=== PATIENT | female | born 1960 | race Two or more races ===

== ENCOUNTER 2020-12-13 17:37 | Inpatient (IN) | payer BC, OTHER ==
[~2020-12-13] VITALS: Ht 170.2 cm; Wt 100.0 kg
[2020-12-13 19:35] LABS: Basophils # (auto) 0 10 ^3/uL (0-0.2); Eosinophils # (auto) 0 10 ^3/uL (0-0.8); Eosinophils % (auto) 0.1 % (0.0-7.0); Hemoglobin 17.5 g/dL (12.2-16.2); Mean Corpuscular Hemoglobin 34.7 pg (28.0-32.0); Monocytes # (auto) 0.2 10 ^3/uL (0-1.3); Neutrophils % (auto) 92.6 % (37.0-80.0)
[2020-12-13 19:37] LABS: Basophils % (auto) 0.3 % (0.0-2.0); Hematocrit 48.9 % (36.0-46.0); Lymphocytes # (auto) 0.9 10 ^3/uL (0.4-5.4); Lymphocytes % (auto) 5.7 % (10.0-50.0); Mean Corpuscular Hgb Conc. 35.8 g/dL (32.0-36.0); Mean Corpuscular Volume 96.7 fL (80.0-100.0); Monocytes % (auto) 1.3 % (0.0-12.0); Neutrophils # (auto) 14.1 10 ^3/uL (1.6-8.6); Nucleated Red Blood Cells % 0.2 %; Red Blood Cells 5.06 10^6/uL (4.0-5.20); Red Cell Distribution Width 13.5 % (11.8-14.3); White Blood Cell 15.2 10^3/uL (4.4-10.8)
[2020-12-13] MEDS ORDERED: PIPERACILLIN-TAZOB 3.375GM 100 ML IV ONE (20:30)
[2020-12-13] MEDS ORDERED: VANCOMYCIN 1GM/250ML 250 ML IV ONE (20:30)
[2020-12-13] MEDS ORDERED: SODIUM CHLORIDE 0.9% 500 ML IV ONE ×2 (20:30→21:45)
[2020-12-13 20:34] LABS: Alkaline Phosphatase 191 U/L (45-117); Anion Gap 16 (5-15); Blood Urea Nitrogen 10 mg/dL (7-18); Carbon Dioxide 22 mmol/L (21-32); Chloride 69 mmol/L (98-107); GFR African American 162 mL/min; GFR Non-African American 134 mL/min; Glucose 106 mg/dL (74-106); Potassium 4.3 mmol/L (3.5-5.1)
[2020-12-13 20:35] LABS: Alanine Aminotransferase 70 U/L (13-56); Albumin 2.3 g/dL (3.4-5.0); Aspartate Aminotransferase 74 U/L (15-37); Bilirubin, Total 1.4 mg/dL (0.2-1.0); Calcium 8.3 mg/dL (8.5-10.1); Magnesium 1.8 mg/dL (1.6-2.6)
[2020-12-13 20:51] LABS: INR 1.37 (0.9-1.15); Partial Thromboplastin Time 31.2 sec (23.0-31.2)
[2020-12-13 21:02] LABS: Sodium 107 mmol/L (136-145)
[2020-12-13] MEDS ORDERED: SODIUM CHL 3% 500 ML IV ONE (21:30)
[2020-12-13 21:33] LABS: Urine Bacteria FEW /hpf (None Seen); Urine Blood Negative /uL (Negative); Urine Specific Gravity 1.017 (1.001-1.035); Urine WBC 10 /hpf (0 - 5)
[2020-12-13 21:42] LABS: Amphetamine Screen, Urine NEGATIVE (NEGATIVE); Barbiturate Scree,Urine NEGATIVE (NEGATIVE); Benzodiazephine Screen, Urine NEGATIVE (NEGATIVE); Cannabinoid Screen, Urine POSITIVE (NEGATIVE); Cocaine Screen, Urine NEGATIVE (NEGATIVE); Opiate Scree,Urine NEGATIVE (NEGATIVE); Phencyclidine Screen, Urine NEGATIVE (NEGATIVE)
[2020-12-13] MEDS ORDERED: SODIUM CHLORIDE 0.9% 1,000 ML IV ONE (21:45)
[2020-12-13] MEDS ORDERED: IOHEXOL 350 MG/ML 100ML IJ ONE (21:56)
[2020-12-14] MEDS ORDERED: SODIUM CHL 3% 500 ML IV ONE ×2 (01:00→13:00)
[2020-12-14] MEDS ORDERED: NITROGLYCERIN 0.4 MG SL TAB SL PRN (01:00)
[2020-12-14] MEDS ORDERED: MORPHINE SULFATE INJECTION 2 MG/ML SYRG IV PRN (01:00)
[2020-12-14] MEDS ORDERED: ONDANSETRON HCL 4 MG/2 ML VIAL IV PRN (01:00)
[2020-12-14] MEDS ORDERED: ACETAMINOPHEN 325 MG TAB PO PRN (01:00)
[2020-12-14 01:37] LABS: Calcium 7.9 mg/dL (8.5-10.1); Potassium 4.2 mmol/L (3.5-5.1)
[2020-12-14 01:43] LABS: BUN/Creatinine Ratio 19.5
[2020-12-14 04:26] LABS: Magnesium 1.7 mg/dL (1.6-2.6)
[2020-12-14 04:39] LABS: CRP High Sensitivity 16.6 mg/dL (< 0.3)
[2020-12-14] MEDS: ENOXAPARIN SOD 40 MG/0.4 ML SYRINGE SC SCH ×2 (09:32→21:32)
[2020-12-14] MEDS: DOXYCYCLINE 100MG/250ML 250 ML IV SCH ×2 (09:32→21:32)
[2020-12-14] MEDS: ASCORBIC ACID 1,000 MG TAB PO SCH (09:32)
[2020-12-14] MEDS: CHOLECALCIFEROL (VITD3) 2,000 UNIT CAP/TAB PO SCH (09:32)
[2020-12-14] MEDS: ZINC SULFATE 220mg CAP or TAB PO SCH (09:32)
[2020-12-14] MEDS ORDERED: DexAMETHasone SOD PHOS 10MG/1ML VIAL INJ IV SCH (10:00)
[2020-12-14] MEDS: FAMOTIDINE 20 MG TAB PO SCH ×2 (10:10→21:32)
[2020-12-14] MEDS ORDERED: ALUM & MAG HYDROX-SIMETH LIQ(MAALOX) 30 ML PO PRN (13:00)
[2020-12-14] MEDS ORDERED: LIDOCAINE VISCOUS 2% 15ML UD MT ONE (13:15)
[2020-12-14] MEDS ORDERED: DONNATAL 5ml ORAL Elix (BELLADONNA ALK-PHENOBARB) PO PRN (13:15)
[2020-12-14] MEDS ORDERED: DONNATAL 5ml ORAL Elix (BELLADONNA ALK-PHENOBARB) PO ONE (13:45)
[2020-12-14] MEDS ORDERED: ALUM & MAG HYDROX-SIMETH LIQ(MAALOX) 30 ML PO ONE (13:45)
[2020-12-15 08:33] LABS: Basophils # (auto) 0 10 ^3/uL (0-0.2); Basophils % (auto) 0.2 % (0.0-2.0); Eosinophils # (auto) 0 10 ^3/uL (0-0.8); Eosinophils % (auto) 0.1 % (0.0-7.0); Hemoglobin 14.8 g/dL (12.2-16.2); Mean Corpuscular Hgb Conc. 35.3 g/dL (32.0-36.0); Neutrophils # (auto) 9.4 10 ^3/uL (1.6-8.6)
[2020-12-15 08:35] LABS: Hematocrit 41.9 % (36.0-46.0); Lymphocytes % (auto) 8.9 % (10.0-50.0); Mean Corpuscular Hemoglobin 34.8 pg (28.0-32.0); Mean Corpuscular Volume 98.4 fL (80.0-100.0); Monocytes # (auto) 0.3 10 ^3/uL (0-1.3); Monocytes % (auto) 2.6 % (0.0-12.0); Neutrophils % (auto) 88.2 % (37.0-80.0); Red Blood Cells 4.26 10^6/uL (4.0-5.20); Red Cell Distribution Width 13.6 % (11.8-14.3); White Blood Cell 10.7 10^3/uL (4.4-10.8)
[2020-12-15 08:53] LABS: Albumin 1.9 g/dL (3.4-5.0); Calcium 7.9 mg/dL (8.5-10.1); Potassium 3.5 mmol/L (3.5-5.1)
[2020-12-15] MEDS: ZINC SULFATE 220mg CAP or TAB PO SCH (08:55)
[2020-12-15] MEDS: ASCORBIC ACID 1,000 MG TAB PO SCH (08:55)
[2020-12-15] MEDS: CHOLECALCIFEROL (VITD3) 2,000 UNIT CAP/TAB PO SCH (08:55)
[2020-12-15] MEDS: DOXYCYCLINE 100MG/250ML 250 ML IV SCH ×2 (08:55→21:28)
[2020-12-15] MEDS: FAMOTIDINE 20 MG TAB PO SCH ×2 (08:55→21:28)
[2020-12-15] MEDS: ENOXAPARIN SOD 40 MG/0.4 ML SYRINGE SC SCH ×2 (08:56→21:28)
[2020-12-15 08:57] LABS: BUN/Creatinine Ratio 24.3; Bilirubin, Total 0.8 mg/dL (0.2-1.0); Total Protein 5.7 g/dL (6.4-8.2)
[2020-12-15] MEDS ORDERED: REMDESIVIR PER PHARMACY 0 ML IV SCH (12:45)
[2020-12-15] MEDS ORDERED: REMDESIVIR 200 MG in NS 210ml LOADING DOSE ADULT IV ONE (15:00)
[2020-12-15] MEDS ORDERED: DexAMETHasone SOD PHOS 10MG/1ML VIAL INJ IV ONE (15:30)
[2020-12-16 06:02] LABS: Basophils # (auto) 0 10 ^3/uL (0-0.2); Eosinophils # (auto) 0 10 ^3/uL (0-0.8); Hemoglobin 13.7 g/dL (12.2-16.2); Lymphocytes # (auto) 0.8 10 ^3/uL (0.4-5.4); Mean Corpuscular Hemoglobin 35.3 pg (28.0-32.0); Monocytes # (auto) 0.3 10 ^3/uL (0-1.3); Neutrophils # (auto) 7.3 10 ^3/uL (1.6-8.6); White Blood Cell 8.4 10^3/uL (4.4-10.8)
[2020-12-16 06:06] LABS: Basophils % (auto) 0.2 % (0.0-2.0); Hematocrit 37.7 % (36.0-46.0); Lymphocytes % (auto) 9.5 % (10.0-50.0); Mean Corpuscular Hgb Conc. 36.3 g/dL (32.0-36.0); Mean Corpuscular Volume 97.3 fL (80.0-100.0); Monocytes % (auto) 3.3 % (0.0-12.0); Red Blood Cells 3.87 10^6/uL (4.0-5.20); Red Cell Distribution Width 13.5 % (11.8-14.3)
[2020-12-16 06:26] LABS: Potassium 3.9 mmol/L (3.5-5.1)
[2020-12-16 06:34] LABS: Albumin 1.8 g/dL (3.4-5.0); BUN/Creatinine Ratio 28.1; Bilirubin, Total 0.8 mg/dL (0.2-1.0); Calcium 7.7 mg/dL (8.5-10.1); Total Protein 5.4 g/dL (6.4-8.2)
[2020-12-16] MEDS: FAMOTIDINE 20 MG TAB PO SCH ×2 (09:20→21:41)
[2020-12-16] MEDS: ENOXAPARIN SOD 40 MG/0.4 ML SYRINGE SC SCH ×2 (09:20→21:41)
[2020-12-16] MEDS: ZINC SULFATE 220mg CAP or TAB PO SCH (09:20)
[2020-12-16] MEDS: ASCORBIC ACID 1,000 MG TAB PO SCH (09:20)
[2020-12-16] MEDS: DexAMETHasone SOD PHOS 10MG/1ML VIAL INJ IV SCH (09:20)
[2020-12-16] MEDS: DOXYCYCLINE 100MG/250ML 250 ML IV SCH ×2 (09:20→21:41)
[2020-12-16] MEDS: CHOLECALCIFEROL (VITD3) 2,000 UNIT CAP/TAB PO SCH (09:20)
[2020-12-16] MEDS: REMDESIVIR 100mg 100 MG in SODIUM CHL 0.9% 230 ML IV SCH (15:21)
[2020-12-16] MEDS ORDERED: cefTRIAXone 1GM/50ML D5W 50 ML IV ONE (16:30)
[2020-12-16 19:14] VITALS: BP 108/70
[2020-12-16] MEDS: TEMAZEPAM 15 MG CAP PO PRN (21:17)
[2020-12-17] MEDS: ALBUTEROL SULF HFA 90MCG INH 200DOSE IN PRN (08:06)
[2020-12-17 08:18] LABS: Basophils # (auto) 0 10 ^3/uL (0-0.2); Eosinophils # (auto) 0 10 ^3/uL (0-0.8); Eosinophils % (auto) 0.3 % (0.0-7.0); Hemoglobin 13.8 g/dL (12.2-16.2); Lymphocytes # (auto) 1.4 10 ^3/uL (0.4-5.4); Neutrophils # (auto) 8.3 10 ^3/uL (1.6-8.6); Red Cell Distribution Width 13.9 % (11.8-14.3)
[2020-12-17] MEDS: cefTRIAXone 1GM/50ML D5W 50 ML IV SCH (08:18)
[2020-12-17 08:20] LABS: Basophils % (auto) 0.4 % (0.0-2.0); Hematocrit 38.8 % (36.0-46.0); Lymphocytes % (auto) 13.5 % (10.0-50.0); Mean Corpuscular Hemoglobin 34.8 pg (28.0-32.0); Mean Corpuscular Hgb Conc. 35.6 g/dL (32.0-36.0); Mean Corpuscular Volume 97.7 fL (80.0-100.0); Monocytes # (auto) 0.5 10 ^3/uL (0-1.3); Monocytes % (auto) 5.2 % (0.0-12.0); Neutrophils % (auto) 80.6 % (37.0-80.0); Nucleated Red Blood Cells % 0.1 %; Red Blood Cells 3.97 10^6/uL (4.0-5.20); White Blood Cell 10.3 10^3/uL (4.4-10.8)
[2020-12-17 08:32] LABS: Calcium 7.5 mg/dL (8.5-10.1); Potassium 3.6 mmol/L (3.5-5.1)
[2020-12-17 08:36] LABS: BUN/Creatinine Ratio 29.4; Bilirubin, Total 0.7 mg/dL (0.2-1.0); Total Protein 5.7 g/dL (6.4-8.2)
[2020-12-17] MEDS: ENOXAPARIN SOD 40 MG/0.4 ML SYRINGE SC SCH ×2 (10:12→22:32)
[2020-12-17] MEDS: ZINC SULFATE 220mg CAP or TAB PO SCH (10:12)
[2020-12-17] MEDS: FAMOTIDINE 20 MG TAB PO SCH ×2 (10:12→22:32)
[2020-12-17] MEDS: DOXYCYCLINE 100MG/250ML 250 ML IV SCH ×2 (10:12→22:31)
[2020-12-17] MEDS: ASCORBIC ACID 1,000 MG TAB PO SCH (10:12)
[2020-12-17] MEDS: CHOLECALCIFEROL (VITD3) 2,000 UNIT CAP/TAB PO SCH (10:12)
[2020-12-17] MEDS: DexAMETHasone SOD PHOS 10MG/1ML VIAL INJ IV SCH (10:12)
[2020-12-17 14:51] VITALS: BP 107/76
[2020-12-17] MEDS ORDERED: IBUP200C3 PO (15:09)
[2020-12-17 15:56] VITALS: BP 117/75
[2020-12-17] MEDS: REMDESIVIR 100mg 100 MG in SODIUM CHL 0.9% 230 ML IV SCH (18:47)
[2020-12-17] MEDS: TEMAZEPAM 15 MG CAP PO PRN (22:33)
[2020-12-18] VITALS: BP 93/59
[2020-12-18 05:41] LABS: Red Cell Distribution Width 13.9 % (11.8-14.3)
[2020-12-18 05:42] LABS: Hematocrit 36.7 % (36.0-46.0); Hemoglobin 13.2 g/dL (12.2-16.2); Mean Corpuscular Hemoglobin 34.8 pg (28.0-32.0); Mean Corpuscular Hgb Conc. 35.8 g/dL (32.0-36.0); Mean Corpuscular Volume 97.1 fL (80.0-100.0); Red Blood Cells 3.79 10^6/uL (4.0-5.20); White Blood Cell 9.1 10^3/uL (4.4-10.8)
[2020-12-18 06:06] LABS: Potassium 3.4 mmol/L (3.5-5.1)
[2020-12-18 06:10] LABS: Band Neutrophils % (manual) 0; Basophils % (manual) 0 (0.0-2.0); Blast Cells 0; Eosinophils % (manual) 0 (0-7); Metamyelocytes % 0; Myelocytes % 0; Promyelocytes % 0; Reactive Lymphocytes 0
[2020-12-18 06:21] LABS: Albumin 1.9 g/dL (3.4-5.0); BUN/Creatinine Ratio 36.4; Bilirubin, Total 0.7 mg/dL (0.2-1.0); CRP High Sensitivity 2.07 mg/dL (< 0.3); Calcium 6.6 mg/dL (8.5-10.1); Total Protein 5.4 g/dL (6.4-8.2)
[2020-12-18] MEDS: ALBUTEROL SULF HFA 90MCG INH 200DOSE IN PRN ×2 (07:20→19:03)
[2020-12-18 08:00] VITALS: BP 98/67
[2020-12-18 08:32] LABS: Lymphocytes % (manual) 14 (10.0-50.0); Monocytes % (manual) 18 (0-12)
[2020-12-18] MEDS: FAMOTIDINE 20 MG TAB PO SCH ×2 (09:52→21:19)
[2020-12-18] MEDS: ASCORBIC ACID 1,000 MG TAB PO SCH (09:52)
[2020-12-18] MEDS: CHOLECALCIFEROL (VITD3) 2,000 UNIT CAP/TAB PO SCH (09:52)
[2020-12-18] MEDS: ENOXAPARIN SOD 40 MG/0.4 ML SYRINGE SC SCH ×2 (09:52→21:18)
[2020-12-18] MEDS: DexAMETHasone SOD PHOS 10MG/1ML VIAL INJ IV SCH (09:52)
[2020-12-18] MEDS: cefTRIAXone 1GM/50ML D5W 50 ML IV SCH (09:52)
[2020-12-18] MEDS: ZINC SULFATE 220mg CAP or TAB PO SCH (09:52)
[2020-12-18] MEDS: DOXYCYCLINE 100MG/250ML 250 ML IV SCH ×2 (10:30→21:18)
[2020-12-18] MEDS: REMDESIVIR 100mg 100 MG in SODIUM CHL 0.9% 230 ML IV SCH (15:49)
[2020-12-18 16:00] VITALS: BP 98/67
[2020-12-18] MEDS ORDERED: POTASSIUM CHL 20 Meq TABLET PO ONE (19:15)
[2020-12-18] MEDS: TEMAZEPAM 15 MG CAP PO PRN (21:18)
[2020-12-19] VITALS: BP 114/77
[2020-12-19 06:12] LABS: Hematocrit 39.7 % (36.0-46.0); Hemoglobin 14.2 g/dL (12.2-16.2)
[2020-12-19 06:14] LABS: Mean Corpuscular Hemoglobin 34.9 pg (28.0-32.0); Mean Corpuscular Hgb Conc. 35.8 g/dL (32.0-36.0); Mean Corpuscular Volume 97.4 fL (80.0-100.0); Red Blood Cells 4.08 10^6/uL (4.0-5.20); Red Cell Distribution Width 13.8 % (11.8-14.3)
[2020-12-19 06:24] LABS: Calcium 6.8 mg/dL (8.5-10.1); Potassium 3.7 mmol/L (3.5-5.1)
[2020-12-19 06:25] LABS: Basophils % (manual) 0 (0.0-2.0); Blast Cells 0; Promyelocytes % 0; Reactive Lymphocytes 0
[2020-12-19 06:30] LABS: Albumin 2.2 g/dL (3.4-5.0); BUN/Creatinine Ratio 27.3; Bilirubin, Total 0.7 mg/dL (0.2-1.0); Total Protein 5.8 g/dL (6.4-8.2)
[2020-12-19 08:00] VITALS: BP 93/51
[2020-12-19] MEDS: cefTRIAXone 1GM/50ML D5W 50 ML IV SCH (09:39)
[2020-12-19] MEDS: ZINC SULFATE 220mg CAP or TAB PO SCH (09:39)
[2020-12-19] MEDS: DexAMETHasone SOD PHOS 10MG/1ML VIAL INJ IV SCH (09:39)
[2020-12-19] MEDS: ASCORBIC ACID 1,000 MG TAB PO SCH (09:40)
[2020-12-19] MEDS: FAMOTIDINE 20 MG TAB PO SCH ×2 (09:40→21:02)
[2020-12-19] MEDS: CHOLECALCIFEROL (VITD3) 2,000 UNIT CAP/TAB PO SCH (09:40)
[2020-12-19] MEDS: ENOXAPARIN SOD 40 MG/0.4 ML SYRINGE SC SCH ×2 (09:40→21:02)
[2020-12-19 11:35] LABS: Band Neutrophils % (manual) 15; Eosinophils % (manual) 1 (0-7); Lymphocytes % (manual) 17 (10.0-50.0); Metamyelocytes % 2; Monocytes % (manual) 9 (0-12); Myelocytes % 2
[2020-12-19 16:00] VITALS: BP 112/83
[2020-12-19] MEDS: REMDESIVIR 100mg 100 MG in SODIUM CHL 0.9% 230 ML IV SCH (16:06)
[2020-12-19] MEDS: ALBUTEROL SULF HFA 90MCG INH 200DOSE IN PRN (19:49)
[2020-12-19] MEDS: TEMAZEPAM 15 MG CAP PO PRN (21:03)
[2020-12-20 00:23] VITALS: BP 91/62
[2020-12-20 06:06] LABS: Hemoglobin 13.1 g/dL (12.2-16.2); Mean Corpuscular Volume 97.3 fL (80.0-100.0)
[2020-12-20 06:10] LABS: Hematocrit 36.7 % (36.0-46.0); Mean Corpuscular Hemoglobin 34.7 pg (28.0-32.0); Mean Corpuscular Hgb Conc. 35.7 g/dL (32.0-36.0); Red Blood Cells 3.77 10^6/uL (4.0-5.20); Red Cell Distribution Width 13.6 % (11.8-14.3); White Blood Cell 9.3 10^3/uL (4.4-10.8)
[2020-12-20 06:21] LABS: Calcium 7.1 mg/dL (8.5-10.1); Potassium 3.6 mmol/L (3.5-5.1)
[2020-12-20 06:49] LABS: Band Neutrophils % (manual) 0; Basophils % (manual) 0 (0.0-2.0); Blast Cells 0; Eosinophils % (manual) 0 (0-7); Metamyelocytes % 0; Myelocytes % 0; Promyelocytes % 0; Reactive Lymphocytes 0
[2020-12-20 08:00] VITALS: BP 118/74
[2020-12-20] MEDS: cefTRIAXone 1GM/50ML D5W 50 ML IV SCH (08:31)
[2020-12-20] MEDS: DexAMETHasone SOD PHOS 10MG/1ML VIAL INJ IV SCH (09:08)
[2020-12-20] MEDS: ZINC SULFATE 220mg CAP or TAB PO SCH (09:08)
[2020-12-20] MEDS: CHOLECALCIFEROL (VITD3) 2,000 UNIT CAP/TAB PO SCH (09:09)
[2020-12-20] MEDS: ENOXAPARIN SOD 40 MG/0.4 ML SYRINGE SC SCH ×2 (09:09→22:09)
[2020-12-20] MEDS: ASCORBIC ACID 1,000 MG TAB PO SCH (09:09)
[2020-12-20] MEDS: ALBUTEROL SULF HFA 90MCG INH 200DOSE IN PRN (09:11)
[2020-12-20 09:32] LABS: Lymphocytes % (manual) 20 (10.0-50.0); Monocytes % (manual) 5 (0-12)
[2020-12-20] MEDS: FAMOTIDINE 20 MG TAB PO SCH ×2 (10:19→22:09)
[2020-12-20 16:00] VITALS: BP 116/74
[2020-12-20] MEDS: TEMAZEPAM 15 MG CAP PO PRN (22:09)
[2020-12-21] VITALS: BP 109/76
[2020-12-21 05:27] LABS: Hematocrit 37.1 % (36.0-46.0); Hemoglobin 13.3 g/dL (12.2-16.2); Mean Corpuscular Hemoglobin 35.1 pg (28.0-32.0); Mean Corpuscular Hgb Conc. 35.8 g/dL (32.0-36.0); Red Blood Cells 3.79 10^6/uL (4.0-5.20); Red Cell Distribution Width 13.7 % (11.8-14.3); White Blood Cell 7.4 10^3/uL (4.4-10.8)
[2020-12-21 05:54] LABS: Calcium 7.5 mg/dL (8.5-10.1); Potassium 3.3 mmol/L (3.5-5.1)
[2020-12-21 05:55] LABS: BUN/Creatinine Ratio 32.1
[2020-12-21] MEDS: ALBUTEROL SULF HFA 90MCG INH 200DOSE IN PRN (06:20)
[2020-12-21 06:32] LABS: Basophils % (manual) 0 (0.0-2.0); Blast Cells 0; Eosinophils % (manual) 0 (0-7); Myelocytes % 0; Promyelocytes % 0; Reactive Lymphocytes 0
[2020-12-21 08:00] VITALS: BP 127/77
[2020-12-21 08:24] LABS: Band Neutrophils % (manual) 2; Lymphocytes % (manual) 24 (10.0-50.0); Metamyelocytes % 1; Monocytes % (manual) 9 (0-12)
[2020-12-21] MEDS: cefTRIAXone 1GM/50ML D5W 50 ML IV SCH (10:24)
[2020-12-21] MEDS: ENOXAPARIN SOD 40 MG/0.4 ML SYRINGE SC SCH (10:24)
[2020-12-21] MEDS: DexAMETHasone SOD PHOS 10MG/1ML VIAL INJ IV SCH (10:25)
[2020-12-21] MEDS: CHOLECALCIFEROL (VITD3) 2,000 UNIT CAP/TAB PO SCH (10:26)
[2020-12-21] MEDS: ASCORBIC ACID 1,000 MG TAB PO SCH (10:26)
[2020-12-21] MEDS: FAMOTIDINE 20 MG TAB PO SCH (10:26)
[2020-12-21] MEDS: ZINC SULFATE 220mg CAP or TAB PO SCH (10:26)
[2020-12-21] MEDS ORDERED: ASCO10003 PO (11:17)
[2020-12-21] MEDS ORDERED: CHOL1CAP47 PO (11:17)
[2020-12-21] MEDS ORDERED: ALBUAER3 IN (11:17)
[2020-12-21 14:23] VITALS: BP 127/77
[2020-12-21 15:43] VITALS: BP 119/66
== END 2020-12-21 17:00 | disposition home or self-care (01) | DRG 871 ==
LOC: EDBD 17:37 → ER 17:37 → TELE 17:38 → TELE-EAST 12-17 14:05
PROVIDERS: ADMIT Nurse Practitioner; ATTEND Internal Medicine Pulmonary Disease
PROC: XW033E5 Introduction of Remdesivir Anti-infective into Peripheral Vein, Percutaneous Approach, New Technology Group 5 (ICD-10-PCS; 2020-12-15)
PROC: XW13325 Transfusion of Convalescent Plasma (Nonautologous) into Peripheral Vein, Percutaneous Approach, New Technology Group 5 (ICD-10-PCS; principal; 2020-12-16)
PROC: 05HC33Z Insertion of Infusion Device into Left Basilic Vein, Percutaneous Approach (ICD-10-PCS; 2020-12-16)
PROC: B54NZZA Ultrasonography of Left Upper Extremity Veins, Guidance (ICD-10-PCS; 2020-12-16)
DX: A41.89 Other specified sepsis (principal); U07.1 COVID-19; J12.82 Pneumonia due to coronavirus disease 2019; J96.01 Acute respiratory failure with hypoxia; L03.314 Cellulitis of groin; E87.1 Hypo-osmolality and hyponatremia; E44.0 Moderate protein-calorie malnutrition; B35.6 Tinea cruris; F17.210 Nicotine dependence, cigarettes, uncomplicated; E87.6 Hypokalemia; Z68.33 Body mass index [BMI] 33.0-33.9, adult; R22.42 Localized swelling, mass and lump, left lower limb
CPT/HCPCS: 36415; 71045; 71260; 73700; 74177; 76705; 80048; 80053; 80307; 80320; 81001; 82533; 82728; 83605; 83615; 83735; 83880; 83930; 83935; 84295; 84300; 84443; 84484; 85007; 85025; 85027; 85379; 85610; 85730; 86141; 86850; 86900; 86901; 87040; 87086; 87088; 87186; 87426; 93005; 94640; 96365; 96366; 96368; 99291; G0378; J0696; J1100; J2543; J3490

== ENCOUNTER → 2021-02-05 | Outpatient (CLI) | payer OTHER ==
[~2021-02-05] MED LIST: ALBUAER3 IN; ASCO10003 PO; CHOL1CAP47 PO; IBUP200C3 PO
[2021-02-05 11:35] LABS: Urine Bacteria FEW /hpf (None Seen); Urine Blood Negative /uL (Negative); Urine Specific Gravity 1.008 (1.001-1.035); Urine WBC 2 /hpf (0 - 5)
== END | disposition home or self-care (01) ==
LOC: LAB 10:52
PROVIDERS: ATTEND Student in an Organized Health Care Education/Training Program
DX: I10 Essential (primary) hypertension (principal); R73.9 Hyperglycemia, unspecified
CPT/HCPCS: 81001

== ENCOUNTER → 2021-02-11 | Outpatient (CLI) | payer OTHER | END | disposition home or self-care (01) | LOC: XYW 09:46 | PROVIDERS: ATTEND Internal Medicine | DX: Z01.810 Encounter for preprocedural cardiovascular examination (principal); I51.7 Cardiomegaly | CPT/HCPCS: 93306 ==

== ENCOUNTER → 2021-02-12 | Outpatient (CLI) | payer OTHER ==
[~2021-02-12] VITALS: Ht 165.1 cm; Wt 94.8 kg
[~2021-02-12] MED LIST changes: +ADENOSINE 80 MG in GIVE UN-DILUTED 0 ML IV ONE
== END | disposition home or self-care (01) ==
LOC: XY 07:28
PROVIDERS: ATTEND Internal Medicine
DX: Z01.810 Encounter for preprocedural cardiovascular examination (principal)
CPT/HCPCS: 78452; 93017; A9500; J0153

== ENCOUNTER → 2021-06-04 | Outpatient (CLI) | payer OTHER ==
[~2021-06-04] MED LIST changes: -ADENOSINE 80 MG in GIVE UN-DILUTED 0 ML IV ONE
== END | disposition home or self-care (01) ==
LOC: LAB 12:48
PROVIDERS: ATTEND Student in an Organized Health Care Education/Training Program
DX: E03.9 Hypothyroidism, unspecified (principal)
CPT/HCPCS: 36415; 84439; 84443

== ENCOUNTER 2021-11-12 12:00 | Inpatient (IN) | payer OTHER ==
[~2021-11-12] VITALS: Ht 165.1 cm; Wt 82.0 kg
[2021-11-12] MEDS ORDERED: SODIUM CHLORIDE 0.9% 1,000 ML IV ONE ×2 (12:45)
[2021-11-12] MEDS ORDERED: CLINDAMYCIN 600MG IV 50 ML IV ONE (12:45)
[2021-11-12] MEDS ORDERED: cefTRIAXone 1GM/50ML D5W 50 ML IV ONE (12:45)
[2021-11-12 19:23] LABS: Basophils # (auto) 0 10 ^3/uL (0-0.2); Basophils % (auto) 0.1 % (0.0-2.0); Eosinophils # (auto) 0 10 ^3/uL (0-0.8); Hemoglobin 14.5 g/dL (12.2-16.2); Lymphocytes # (auto) 1.9 10 ^3/uL (0.4-5.4); Lymphocytes % (auto) 6.5 % (10.0-50.0); Mean Corpuscular Hemoglobin 31.4 pg (28.0-32.0); Mean Corpuscular Hgb Conc. 32.9 g/dL (32.0-36.0); Mean Corpuscular Volume 95.4 fL (80.0-100.0); Monocytes # (auto) 0.8 10 ^3/uL (0-1.3); Monocytes % (auto) 2.6 % (0.0-12.0); Neutrophils % (auto) 90.8 % (37.0-80.0); Red Blood Cells 4.61 10^6/uL (4.0-5.20); Red Cell Distribution Width 15.3 % (11.8-14.3); White Blood Cell 28.7 10^3/uL (4.4-10.8)
[2021-11-12 19:37] LABS: INR 1.16 (0.9-1.15); Partial Thromboplastin Time 28.7 sec (23.6-33.0)
[2021-11-12 19:39] LABS: Albumin 2.1 g/dL (3.4-5.0); Calcium 8.9 mg/dL (8.5-10.1); Potassium 4.6 mmol/L (3.5-5.1)
[2021-11-12 19:46] LABS: BUN/Creatinine Ratio 23.7; Bilirubin, Total 0.8 mg/dL (0.2-1.0); Total Protein 7.2 g/dL (6.4-8.2)
[2021-11-12] MEDS ORDERED: SODIUM CHL 3% 500 ML IV ONE (20:15)
[2021-11-12] MEDS ORDERED: ONDANSETRON HCL 4 MG/2 ML VIAL IV PRN (21:00)
[2021-11-12] MEDS ORDERED: SODIUM CHLORIDE 0.9% 1,000 ML IV SCH (21:00)
[2021-11-12] MEDS ORDERED: MORPHINE SULFATE INJECTION 2 MG/ML SYRG IV PRN ×2 (21:00→21:45)
[2021-11-12] MEDS ORDERED: DOCUSATE SOD 100 MG CAP PO PRN (21:00)
[2021-11-12] MEDS ORDERED: ALBUMIN 25% 100 ML IV ONE (21:00)
[2021-11-12] MEDS ORDERED: ACETAMINOPHEN 325 MG TAB PO PRN (21:00)
[2021-11-12] MEDS ORDERED: dilTIAZem 125mg/125ml BAG KIT 125 ML IV ONE (21:45)
[2021-11-12] MEDS ORDERED: NITROGLYCERIN 0.4 MG SL TAB SL PRN (21:45)
[2021-11-12] MEDS: ASCORBIC ACID 500 MG TAB PO SCH (22:55)
[2021-11-12] MEDS: CLINDAMYCIN 600MG IV 50 ML IV SCH (22:55)
[2021-11-12] MEDS: AZITHROMYCIN 500MG/ 250ML 250 ML IV SCH (23:15)
[2021-11-12 23:54] LABS: CRP High Sensitivity 5.41 mg/dL (< 0.3)
[2021-11-13 01:55] LABS: Urine Bacteria NONE SEEN /hpf (None Seen); Urine Blood 3+ /uL (Negative); Urine Mucus FEW (None Seen); Urine Specific Gravity 1.015 (1.001-1.035); Urine WBC 117 /hpf (0 - 5)
[2021-11-13 03:31] LABS: Basophils # (auto) 0 10 ^3/uL (0-0.2); Basophils % (auto) 0.1 % (0.0-2.0); Eosinophils # (auto) 0 10 ^3/uL (0-0.8); Eosinophils % (auto) 0.1 % (0.0-7.0); Hematocrit 39.1 % (36.0-46.0); Hemoglobin 12.7 g/dL (12.2-16.2); Lymphocytes # (auto) 1.8 10 ^3/uL (0.4-5.4); Lymphocytes % (auto) 6.4 % (10.0-50.0); Mean Corpuscular Hemoglobin 30.7 pg (28.0-32.0); Mean Corpuscular Hgb Conc. 32.4 g/dL (32.0-36.0); Mean Corpuscular Volume 94.7 fL (80.0-100.0); Monocytes # (auto) 1.1 10 ^3/uL (0-1.3); Monocytes % (auto) 3.8 % (0.0-12.0); Neutrophils # (auto) 25.6 10 ^3/uL (1.6-8.6); Neutrophils % (auto) 89.6 % (37.0-80.0); Red Blood Cells 4.13 10^6/uL (4.0-5.20); Red Cell Distribution Width 15.2 % (11.8-14.3); White Blood Cell 28.6 10^3/uL (4.4-10.8)
[2021-11-13] MEDS: HYDROcodone-ACET 5/325MG TAB PO PRN (04:06)
[2021-11-13] MEDS ORDERED: MIDODRINE HCL 10 MG TAB PO ONE (04:15)
[2021-11-13 06:09] LABS: Basophils # (auto) 0.1 10 ^3/uL (0-0.2); Basophils % (auto) 0.4 % (0.0-2.0); Eosinophils # (auto) 0.1 10 ^3/uL (0-0.8); Eosinophils % (auto) 0.2 % (0.0-7.0); Hematocrit 40.8 % (36.0-46.0); Hemoglobin 13.5 g/dL (12.2-16.2); Lymphocytes # (auto) 1.7 10 ^3/uL (0.4-5.4); Lymphocytes % (auto) 7.1 % (10.0-50.0); Mean Corpuscular Hemoglobin 31.4 pg (28.0-32.0); Mean Corpuscular Hgb Conc. 33.1 g/dL (32.0-36.0); Mean Corpuscular Volume 94.9 fL (80.0-100.0); Monocytes # (auto) 0.7 10 ^3/uL (0-1.3); Monocytes % (auto) 2.9 % (0.0-12.0); Neutrophils # (auto) 21.3 10 ^3/uL (1.6-8.6); Neutrophils % (auto) 89.4 % (37.0-80.0); Nucleated Red Blood Cells % 0.1 %; Red Cell Distribution Width 15.3 % (11.8-14.3); White Blood Cell 23.8 10^3/uL (4.4-10.8)
[2021-11-13] MEDS: CLINDAMYCIN 600MG IV 50 ML IV SCH (06:16)
[2021-11-13 06:21] LABS: Calcium 8.3 mg/dL (8.5-10.1); Potassium 4.2 mmol/L (3.5-5.1)
[2021-11-13 06:29] LABS: Albumin 1.8 g/dL (3.4-5.0); BUN/Creatinine Ratio 26.7; Total Protein 6.2 g/dL (6.4-8.2)
[2021-11-13] MEDS ORDERED: ALBUMIN 25% 100 ML IV ONE (08:00)
[2021-11-13] MEDS ORDERED: cefTRIAXone 1GM/50ML D5W 50 ML IV SCH (09:00)
[2021-11-13] MEDS: AZITHROMYCIN 500MG/ 250ML 250 ML IV SCH (09:57)
[2021-11-13] MEDS: FAMOTIDINE (10MG/ML) 2ML VL IV SCH (09:57)
[2021-11-13] MEDS: ENOXAPARIN SOD 40 MG/0.4 ML SYRINGE SC SCH (09:57)
[2021-11-13] MEDS: ASPirin 81 mg TAB PO SCH (09:57)
[2021-11-13] MEDS: MULTIPLE VITAMIN TAB PO SCH (09:57)
[2021-11-13] MEDS: ASCORBIC ACID 500 MG TAB PO SCH ×2 (09:57→23:34)
[2021-11-13] MEDS: ZINC SULFATE 220mg CAP or TAB PO SCH (09:57)
[2021-11-13] MEDS ORDERED: dilTIAZem 125mg/125ml BAG KIT 125 ML IV ONE (11:10)
[2021-11-13] MEDS ORDERED: AMIODARONE 450mg/250ml AE 250 ML IV ONE (11:21)
[2021-11-13] MEDS: AMIODARONE 450mg/250ml AE 250 ML IV SCH (11:38)
[2021-11-13] MEDS ORDERED: FUROSEMIDE 40 MG/4 ML VIAL IV ONE (12:00)
[2021-11-13] MEDS: PIPERACILLIN-TAZOB 3.375GM 100 ML IV SCH ×3 (12:25→23:35)
[2021-11-13 12:50] LABS: Basophils # (auto) 0 10 ^3/uL (0-0.2); Basophils % (auto) 0.2 % (0.0-2.0); Eosinophils # (auto) 0 10 ^3/uL (0-0.8); Eosinophils % (auto) 0.1 % (0.0-7.0); Hematocrit 36.7 % (36.0-46.0); Hemoglobin 12.1 g/dL (12.2-16.2); Lymphocytes # (auto) 1.3 10 ^3/uL (0.4-5.4); Lymphocytes % (auto) 5.8 % (10.0-50.0); Mean Corpuscular Hemoglobin 30.9 pg (28.0-32.0); Mean Corpuscular Hgb Conc. 32.9 g/dL (32.0-36.0); Monocytes # (auto) 0.6 10 ^3/uL (0-1.3); Monocytes % (auto) 2.5 % (0.0-12.0); Neutrophils # (auto) 20.9 10 ^3/uL (1.6-8.6); Neutrophils % (auto) 91.4 % (37.0-80.0); Nucleated Red Blood Cells % 0.1 %; Red Cell Distribution Width 15.2 % (11.8-14.3); White Blood Cell 22.8 10^3/uL (4.4-10.8)
[2021-11-13 13:02] LABS: Albumin 2.1 g/dL (3.4-5.0); BUN/Creatinine Ratio 24.4; Calcium 8.1 mg/dL (8.5-10.1); Potassium 3.9 mmol/L (3.5-5.1)
[2021-11-13 13:04] LABS: Bilirubin, Total 1.1 mg/dL (0.2-1.0); Total Protein 5.4 g/dL (6.4-8.2)
[2021-11-13 14:06] LABS: Creatinine, Urine 70.3 mg/dL (30.0-125.0); Protein, Urine 50.3 mg/dL (0.0-11.9)
[2021-11-13] MEDS: FUROSEMIDE 40 MG/4 ML VIAL IV SCH (18:25)
[2021-11-13] MEDS ORDERED: DIGOXIN (250MCG/ML) 2 ML AMPULE IV ONE (20:30)
[2021-11-14] MEDS: AMIODARONE 450mg/250ml AE 250 ML IV SCH ×2 (03:10→23:30)
[2021-11-14] MEDS: PIPERACILLIN-TAZOB 3.375GM 100 ML IV SCH ×3 (05:45→21:21)
[2021-11-14] MEDS: FUROSEMIDE 40 MG/4 ML VIAL IV SCH ×2 (06:00→12:30)
[2021-11-14] MEDS: ASPirin 81 mg TAB PO SCH (09:27)
[2021-11-14] MEDS: FAMOTIDINE (10MG/ML) 2ML VL IV SCH (09:27)
[2021-11-14] MEDS: ZINC SULFATE 220mg CAP or TAB PO SCH (09:27)
[2021-11-14] MEDS: ASCORBIC ACID 500 MG TAB PO SCH ×2 (09:28→21:47)
[2021-11-14] MEDS: ENOXAPARIN SOD 40 MG/0.4 ML SYRINGE SC SCH (09:28)
[2021-11-14] MEDS: MULTIPLE VITAMIN TAB PO SCH (09:28)
[2021-11-14] MEDS: AZITHROMYCIN 500MG/ 250ML 250 ML IV SCH (09:39)
[2021-11-14] MEDS: HYDROcodone-ACET 5/325MG TAB PO PRN (10:50)
[2021-11-14 11:40] LABS: Albumin 2.1 g/dL (3.4-5.0); Calcium 7.8 mg/dL (8.5-10.1)
[2021-11-14 11:44] LABS: BUN/Creatinine Ratio 14.3; Bilirubin, Total 1.4 mg/dL (0.2-1.0)
[2021-11-14 11:53] LABS: Potassium 2.3 mmol/L (3.5-5.1)
[2021-11-14] MEDS ORDERED: POTASSIUM CHL 20 Meq TABLET PO ONE ×2 (12:00→18:00)
[2021-11-14] MEDS: POTASSIUM CHL 20MEQ/50ML 50 ML IV SCH ×2 (12:27→17:05)
[2021-11-14 12:53] LABS: Magnesium 1.4 mg/dL (1.6-2.6); Phosphorus 1.6 mg/dL (2.5-4.90)
[2021-11-14] MEDS ORDERED: SPIRONOLACTONE 25 MG TAB PO ONE (13:45)
[2021-11-14] MEDS ORDERED: DIGOXIN (250MCG/ML) 2 ML AMPULE IV ONE (13:45)
[2021-11-14] MEDS: POTASSIUM CHL 20 Meq TABLET PO SCH ×3 (17:05→21:47)
[2021-11-14 18:00] VITALS: BP 101/55
[2021-11-14] MEDS ORDERED: DIPH25CA66 PO (18:58)
[2021-11-14] MEDS ORDERED: CAR3125T PO (18:58)
[2021-11-14] MEDS ORDERED: SIMV10TA84 PO (18:58)
[2021-11-14] MEDS ORDERED: LISI2.5T47 PO (18:58)
[2021-11-14 20:00] VITALS: BP 102/63
[2021-11-14] MEDS: CARVEDILOL 3.125 MG TAB PO SCH (21:48)
[2021-11-14 22:00] VITALS: BP 102/63
[2021-11-15] MEDS: PIPERACILLIN-TAZOB 3.375GM 100 ML IV SCH ×4 (03:06→21:38)
[2021-11-15] MEDS: POTASSIUM CHL 20 Meq TABLET PO SCH (03:07)
[2021-11-15 05:00] VITALS: BP 94/57
[2021-11-15 05:14] LABS: Basophils # (auto) 0.1 10 ^3/uL (0-0.2); Basophils % (auto) 0.4 % (0.0-2.0); Eosinophils # (auto) 0.1 10 ^3/uL (0-0.8); Eosinophils % (auto) 0.3 % (0.0-7.0); Hematocrit 35.1 % (36.0-46.0); Hemoglobin 11.6 g/dL (12.2-16.2); Lymphocytes # (auto) 1.7 10 ^3/uL (0.4-5.4); Lymphocytes % (auto) 9.7 % (10.0-50.0); Mean Corpuscular Hemoglobin 31.2 pg (28.0-32.0); Mean Corpuscular Volume 94.5 fL (80.0-100.0); Monocytes # (auto) 0.9 10 ^3/uL (0-1.3); Monocytes % (auto) 5.1 % (0.0-12.0); Neutrophils # (auto) 14.5 10 ^3/uL (1.6-8.6); Neutrophils % (auto) 84.5 % (37.0-80.0); Nucleated Red Blood Cells % 0.1 %; Red Blood Cells 3.72 10^6/uL (4.0-5.20); Red Cell Distribution Width 14.7 % (11.8-14.3); White Blood Cell 17.1 10^3/uL (4.4-10.8)
[2021-11-15 05:33] LABS: Calcium 7.6 mg/dL (8.5-10.1); Potassium 3.8 mmol/L (3.5-5.1)
[2021-11-15 08:20] VITALS: BP 100/63
[2021-11-15 08:30] VITALS: BP 100/68
[2021-11-15] MEDS: AZITHROMYCIN 500MG/ 250ML 250 ML IV SCH (10:00)
[2021-11-15] MEDS: ASCORBIC ACID 500 MG TAB PO SCH ×2 (10:00→22:37)
[2021-11-15] MEDS: ASPirin 81 mg TAB PO SCH (10:00)
[2021-11-15] MEDS: ENOXAPARIN SOD 40 MG/0.4 ML SYRINGE SC SCH (10:00)
[2021-11-15] MEDS: ZINC SULFATE 220mg CAP or TAB PO SCH (10:00)
[2021-11-15] MEDS: CARVEDILOL 3.125 MG TAB PO SCH ×2 (10:00→21:41)
[2021-11-15] MEDS: MULTIPLE VITAMIN TAB PO SCH (10:00)
[2021-11-15] MEDS: FAMOTIDINE (10MG/ML) 2ML VL IV SCH (10:00)
[2021-11-15] MEDS: FUROSEMIDE 40 MG/4 ML VIAL IV SCH (10:03)
[2021-11-15] MEDS ORDERED: POTASSIUM PHOSPHATE 44 MEQ in D5W 5% 250 ML IV ONE (12:00)
[2021-11-15 12:30] VITALS: BP 98/71
[2021-11-15] MEDS: MAGNESIUM SULFATE 1GM/100ML 100 ML IV SCH ×2 (15:19→16:47)
[2021-11-15] MEDS: AMIODARONE 450mg/250ml AE 250 ML IV SCH (15:22)
[2021-11-15 17:00] VITALS: BP 108/70
[2021-11-15] MEDS: HYDROcodone-ACET 5/325MG TAB PO PRN (18:06)
[2021-11-15 20:14] VITALS: BP 97/68
[2021-11-16] MEDS: HYDROcodone-ACET 5/325MG TAB PO PRN ×4 (00:01→20:08)
[2021-11-16] MEDS: PIPERACILLIN-TAZOB 3.375GM 100 ML IV SCH ×4 (03:17→20:10)
[2021-11-16 03:22] VITALS: BP 95/65
[2021-11-16] MEDS: AMIODARONE 450mg/250ml AE 250 ML IV SCH ×2 (05:04→20:12)
[2021-11-16 06:07] LABS: Potassium 3.1 mmol/L (3.5-5.1)
[2021-11-16 06:13] LABS: BUN/Creatinine Ratio 24.2; Calcium 7.5 mg/dL (8.5-10.1); Phosphorus 2.9 mg/dL (2.5-4.90)
[2021-11-16 06:15] LABS: Hematocrit 35.7 % (36.0-46.0); Hemoglobin 11.8 g/dL (12.2-16.2); Mean Corpuscular Hemoglobin 31.4 pg (28.0-32.0); Mean Corpuscular Hgb Conc. 33.1 g/dL (32.0-36.0); Mean Corpuscular Volume 94.9 fL (80.0-100.0); Red Blood Cells 3.76 10^6/uL (4.0-5.20); Red Cell Distribution Width 14.7 % (11.8-14.3); White Blood Cell 15.1 10^3/uL (4.4-10.8)
[2021-11-16 06:28] LABS: Basophils % (manual) 0 (0.0-2.0); Blast Cells 0; Myelocytes % 0; Promyelocytes % 0; Reactive Lymphocytes 0
[2021-11-16 07:53] LABS: Band Neutrophils % (manual) 3; Eosinophils % (manual) 1 (0-7); Lymphocytes % (manual) 12 (10.0-50.0); Metamyelocytes % 1; Monocytes % (manual) 9 (0-12)
[2021-11-16 08:25] VITALS: BP 97/56
[2021-11-16 08:55] VITALS: BP 97/56
[2021-11-16] MEDS: FAMOTIDINE (10MG/ML) 2ML VL IV SCH (10:28)
[2021-11-16] MEDS: ASPirin 81 mg TAB PO SCH (10:29)
[2021-11-16] MEDS: ASCORBIC ACID 500 MG TAB PO SCH ×2 (10:29→20:09)
[2021-11-16] MEDS: MULTIPLE VITAMIN TAB PO SCH (10:29)
[2021-11-16] MEDS: AZITHROMYCIN 500MG/ 250ML 250 ML IV SCH (10:29)
[2021-11-16] MEDS: ZINC SULFATE 220mg CAP or TAB PO SCH (10:29)
[2021-11-16] MEDS: CARVEDILOL 3.125 MG TAB PO SCH ×2 (10:30→20:09)
[2021-11-16] MEDS: ENOXAPARIN SOD 40 MG/0.4 ML SYRINGE SC SCH (10:30)
[2021-11-16] MEDS: FUROSEMIDE 40 MG/4 ML VIAL IV SCH (10:30)
[2021-11-16 12:52] VITALS: BP 102/72
[2021-11-16] MEDS: MAGNESIUM SULFATE 1GM/100ML 100 ML IV SCH ×2 (13:30→14:35)
[2021-11-16 16:27] VITALS: BP 112/74
[2021-11-16] MEDS: Pro-Stat SF 30ml Vanilla PO SCH (18:50)
[2021-11-16 22:00] VITALS: BP 108/75
[2021-11-17] MEDS: PIPERACILLIN-TAZOB 3.375GM 100 ML IV SCH ×4 (03:17→20:41)
[2021-11-17 05:00] VITALS: BP 104/63
[2021-11-17 06:37] LABS: Hematocrit 34.6 % (36.0-46.0); Hemoglobin 11.7 g/dL (12.2-16.2); Mean Corpuscular Hemoglobin 31.7 pg (28.0-32.0); Mean Corpuscular Hgb Conc. 33.8 g/dL (32.0-36.0); Mean Corpuscular Volume 93.7 fL (80.0-100.0); Red Blood Cells 3.69 10^6/uL (4.0-5.20); Red Cell Distribution Width 14.9 % (11.8-14.3); White Blood Cell 12.9 10^3/uL (4.4-10.8)
[2021-11-17 06:48] LABS: BUN/Creatinine Ratio 13.9; Calcium 7.8 mg/dL (8.5-10.1); Phosphorus 2.4 mg/dL (2.5-4.90); Potassium 3.1 mmol/L (3.5-5.1)
[2021-11-17 06:59] LABS: Basophils % (manual) 0 (0.0-2.0); Blast Cells 0; Eosinophils % (manual) 0 (0-7); Promyelocytes % 0; Reactive Lymphocytes 0
[2021-11-17] MEDS: Pro-Stat SF 30ml Vanilla PO SCH ×2 (08:00→18:00)
[2021-11-17 08:06] LABS: Band Neutrophils % (manual) 1; Lymphocytes % (manual) 11 (10.0-50.0); Metamyelocytes % 1; Monocytes % (manual) 10 (0-12); Myelocytes % 1
[2021-11-17 08:25] VITALS: BP 96/55
[2021-11-17 09:00] VITALS: BP 96/55
[2021-11-17] MEDS ORDERED: POTASSIUM PHOSPHATE 44 MEQ in D5W 5% 250 ML IV ONE (09:30)
[2021-11-17] MEDS ORDERED: POTASSIUM CHL 20MEQ/50ML 50 ML IV SCH (09:30)
[2021-11-17] MEDS: ENOXAPARIN SOD 40 MG/0.4 ML SYRINGE SC SCH (10:30)
[2021-11-17] MEDS: FUROSEMIDE 40 MG/4 ML VIAL IV SCH (10:30)
[2021-11-17] MEDS: MULTIPLE VITAMIN TAB PO SCH (10:30)
[2021-11-17] MEDS: ZINC SULFATE 220mg CAP or TAB PO SCH (10:30)
[2021-11-17] MEDS: ASCORBIC ACID 500 MG TAB PO SCH ×2 (10:30→21:49)
[2021-11-17] MEDS: CARVEDILOL 3.125 MG TAB PO SCH ×2 (10:30→21:48)
[2021-11-17] MEDS: ASPirin 81 mg TAB PO SCH (10:30)
[2021-11-17] MEDS: FAMOTIDINE (10MG/ML) 2ML VL IV SCH (10:36)
[2021-11-17] MEDS: AZITHROMYCIN 500MG/ 250ML 250 ML IV SCH (10:36)
[2021-11-17 13:00] VITALS: BP 120/76
[2021-11-17] MEDS: AMIODARONE 450mg/250ml AE 250 ML IV SCH (13:15)
[2021-11-17] MEDS ORDERED: MIDAZOLAM HCL 2MG/2ML 2ml VIAL (1mg/ml) ONE ×3 (14:09→14:41)
[2021-11-17] MEDS ORDERED: fentaNYL CITRATE 100 MCG/2 ML VL ONE (14:09)
[2021-11-17] MEDS ORDERED: BUPIVACAINE 0.5% P/F INJ 10 ML VIAL ONE (14:13)
[2021-11-17] MEDS ORDERED: PROPOFOL 10 MG/ML 20 ML IV ONE (14:28)
[2021-11-17] MEDS ORDERED: DexAMETHasone SOD PHOS 10MG/1ML VIAL INJ ONE (14:28)
[2021-11-17] MEDS ORDERED: BUPIVACAINE W/ EPINEPH 0.25% INJ 50ML MDV ONE (14:48)
[2021-11-17] MEDS ORDERED: NEOMYCIN-BACITRACIN-POLYM 15GM TOP OINT TOP ONE (15:07)
[2021-11-17] MEDS ORDERED: POVIDONE IODINE 10 % TOPICAL OINT 30GM TOP ONE (15:07)
[2021-11-17 17:00] VITALS: BP 115/80
[2021-11-17] MEDS: HYDROcodone-ACET 5/325MG TAB PO PRN (20:43)
[2021-11-17 22:00] VITALS: BP 106/75
[2021-11-18] VITALS (7 sets, daily range): BP systolic 97–126; BP diastolic 59–78
[2021-11-18] MEDS: AMIODARONE 450mg/250ml AE 250 ML IV SCH ×2 (00:06→16:55)
[2021-11-18] MEDS: HYDROcodone-ACET 5/325MG TAB PO PRN ×3 (00:59→15:35)
[2021-11-18] MEDS: PIPERACILLIN-TAZOB 3.375GM 100 ML IV SCH ×4 (02:31→21:20)
[2021-11-18 05:17] LABS: Hemoglobin 12.1 g/dL (12.2-16.2); Mean Corpuscular Hemoglobin 32.8 pg (28.0-32.0); Mean Corpuscular Hgb Conc. 34.7 g/dL (32.0-36.0); Mean Corpuscular Volume 94.6 fL (80.0-100.0); Red Cell Distribution Width 14.9 % (11.8-14.3); White Blood Cell 9.8 10^3/uL (4.4-10.8)
[2021-11-18 05:38] LABS: Basophils % (manual) 0 (0.0-2.0); Blast Cells 0; Eosinophils % (manual) 0 (0-7); Metamyelocytes % 0; Promyelocytes % 0; Reactive Lymphocytes 0
[2021-11-18 07:14] LABS: Band Neutrophils % (manual) 7; Lymphocytes % (manual) 12 (10.0-50.0); Monocytes % (manual) 7 (0-12); Myelocytes % 2
[2021-11-18] MEDS: Pro-Stat SF 30ml Vanilla PO SCH ×2 (08:00→18:00)
[2021-11-18] MEDS: AZITHROMYCIN 500MG/ 250ML 250 ML IV SCH (09:24)
[2021-11-18] MEDS: FUROSEMIDE 40 MG/4 ML VIAL IV SCH (09:24)
[2021-11-18] MEDS: FAMOTIDINE (10MG/ML) 2ML VL IV SCH (09:24)
[2021-11-18] MEDS: ZINC SULFATE 220mg CAP or TAB PO SCH (09:25)
[2021-11-18] MEDS: ENOXAPARIN SOD 40 MG/0.4 ML SYRINGE SC SCH (09:25)
[2021-11-18] MEDS: MULTIPLE VITAMIN TAB PO SCH (09:25)
[2021-11-18] MEDS: ASCORBIC ACID 500 MG TAB PO SCH (09:25)
[2021-11-18] MEDS: ASPirin 81 mg TAB PO SCH (09:25)
[2021-11-18] MEDS: CARVEDILOL 3.125 MG TAB PO SCH ×2 (09:26→23:02)
[2021-11-18] MEDS ORDERED: POTASSIUM CHL 20MEQ/50ML 50 ML IV ONE ×2 (11:00→12:15)
[2021-11-18] MEDS ORDERED: POTASSIUM CHL 20 Meq TABLET PO ONE ×2 (11:00→11:15)
[2021-11-18] MEDS ORDERED: POTASSIUM PHOSPHATE 44 MEQ in D5W 5% 250 ML IV ONE (11:15)
[2021-11-19] MEDS: PIPERACILLIN-TAZOB 3.375GM 100 ML IV SCH ×3 (03:07→15:00)
[2021-11-19 05:00] VITALS: BP 93/53
[2021-11-19 07:10] LABS: Anion Gap 10 (5-15); Blood Urea Nitrogen 7 mg/dL (7-18); Calcium 7.9 mg/dL (8.5-10.1); Carbon Dioxide 27 mmol/L (21-32); Chloride 94 mmol/L (98-107); Glucose 102 mg/dL (74-106); Potassium 3.5 mmol/L (3.5-5.1); Sodium 131 mmol/L (136-145)
[2021-11-19 07:11] LABS: BUN/Creatinine Ratio 14.6; GFR African American 170 mL/min; GFR Non-African American 140 mL/min
[2021-11-19 07:30] VITALS: BP 98/68
[2021-11-19 07:54] LABS: Basophils # (auto) 0 10 ^3/uL (0-0.2); Basophils % (auto) 0.2 % (0.0-2.0); Eosinophils # (auto) 0 10 ^3/uL (0-0.8); Eosinophils % (auto) 0.3 % (0.0-7.0); Hematocrit 35.2 % (36.0-46.0); Hemoglobin 11.7 g/dL (12.2-16.2); Lymphocytes # (auto) 1.7 10 ^3/uL (0.4-5.4); Lymphocytes % (auto) 14.3 % (10.0-50.0); Mean Corpuscular Hgb Conc. 33.3 g/dL (32.0-36.0); Monocytes # (auto) 0.7 10 ^3/uL (0-1.3); Monocytes % (auto) 6.1 % (0.0-12.0); Neutrophils # (auto) 9.1 10 ^3/uL (1.6-8.6); Neutrophils % (auto) 79.1 % (37.0-80.0); Nucleated Red Blood Cells % 0.2 %; Red Blood Cells 3.66 10^6/uL (4.0-5.20); Red Cell Distribution Width 15.5 % (11.8-14.3); White Blood Cell 11.5 10^3/uL (4.4-10.8)
[2021-11-19] MEDS: Pro-Stat SF 30ml Vanilla PO SCH (08:15)
[2021-11-19] MEDS: FAMOTIDINE (10MG/ML) 2ML VL IV SCH (08:52)
[2021-11-19] MEDS: ASPirin 81 mg TAB PO SCH (08:52)
[2021-11-19] MEDS: FUROSEMIDE 40 MG/4 ML VIAL IV SCH (08:52)
[2021-11-19] MEDS: ENOXAPARIN SOD 40 MG/0.4 ML SYRINGE SC SCH (08:53)
[2021-11-19] MEDS: CARVEDILOL 3.125 MG TAB PO SCH (08:53)
[2021-11-19] MEDS ORDERED: AMOX500T86 PO (09:13)
[2021-11-19] MEDS ORDERED: POTASSIUM CHL 20 Meq TABLET PO SCH (10:00)
[2021-11-19] MEDS ORDERED: APIXABAN 5 MG TAB PO SCH (10:00)
[2021-11-19] MEDS ORDERED: AMIODARONE HCL 200 MG TAB PO SCH (10:00)
[2021-11-19 12:45] VITALS: BP 106/52
[2021-11-19] MEDS: AZITHROMYCIN 500MG/ 250ML 250 ML IV SCH (13:34)
== END 2021-11-19 16:40 | disposition home health service (06) | DRG 871 ==
LOC: EDBD 12:00 → ER 12:00 → TELE 21:37 → TELE-CENTR 11-14 17:48
PROVIDERS: ADMIT Nurse Practitioner Family; ATTEND Internal Medicine Pulmonary Disease
PROC: 05HF33Z Insertion of Infusion Device into Left Cephalic Vein, Percutaneous Approach (ICD-10-PCS; 2021-11-13)
PROC: B54NZZA Ultrasonography of Left Upper Extremity Veins, Guidance (ICD-10-PCS; 2021-11-13)
PROC: 0HBLXZZ Excision of Left Lower Leg Skin, External Approach (ICD-10-PCS; principal; 2021-11-17 14:15)
DX: A41.9 Sepsis, unspecified organism (principal); J18.9 Pneumonia, unspecified organism; I50.23 Acute on chronic systolic (congestive) heart failure; L03.116 Cellulitis of left lower limb; E87.1 Hypo-osmolality and hyponatremia; I48.19 Other persistent atrial fibrillation; E88.09 Other disorders of plasma-protein metabolism, not elsewhere classified; C43.72 Malignant melanoma of left lower limb, including hip; E66.9 Obesity, unspecified; E83.39 Other disorders of phosphorus metabolism; E83.42 Hypomagnesemia; F17.210 Nicotine dependence, cigarettes, uncomplicated; I11.0 Hypertensive heart disease with heart failure; E87.6 Hypokalemia; I25.10 Atherosclerotic heart disease of native coronary artery without angina pectoris; Z20.822 Contact with and (suspected) exposure to COVID-19; R60.9 Edema, unspecified; Z88.8 Allergy status to other drugs, medicaments and biological substances; Z83.3 Family history of diabetes mellitus; Z85.820 Personal history of malignant melanoma of skin; Z68.29 Body mass index [BMI] 29.0-29.9, adult
CPT/HCPCS: 36415; 71045; 71250; 73700; 80048; 80053; 81001; 82570; 82728; 83605; 83735; 83880; 83930; 83935; 84100; 84132; 84156; 84300; 84443; 84484; 84550; 85007; 85025; 85027; 85379; 85610; 85730; 86141; 87040; 87426; 93005; 93306; 96365; 96366; 96367; 96372; 96375; 96376; G0378; J0696; J1100; J2250; J2543; J2704; J3490; J7060; P9047

== ENCOUNTER 2022-01-03 09:57 | Outpatient (CLI) | payer OTHER ==
[~2022-01-03] VITALS: Ht 165.1 cm; Wt 87.5 kg
[~2022-01-03 09:57] MED LIST changes: -ALBUAER3 IN; +AMOX500T86 PO; -ASCO10003 PO; +CAR3125T PO; -CHOL1CAP47 PO; +DIPH25CA66 PO; +LISI2.5T47 PO; +SIMV10TA84 PO
[2022-01-03 10:38] LABS: Basophils # (auto) 0.1 10 ^3/uL (0-0.2); Basophils % (auto) 0.6 % (0.0-2.0); Eosinophils # (auto) 0.2 10 ^3/uL (0-0.8); Eosinophils % (auto) 1.8 % (0.0-7.0); Hematocrit 35.5 % (36.0-46.0); Hemoglobin 11.4 g/dL (12.2-16.2); Lymphocytes # (auto) 1.2 10 ^3/uL (0.4-5.4); Lymphocytes % (auto) 11.3 % (10.0-50.0); Mean Corpuscular Hemoglobin 27.8 pg (28.0-32.0); Mean Corpuscular Hgb Conc. 32.1 g/dL (32.0-36.0); Mean Corpuscular Volume 86.4 fL (80.0-100.0); Monocytes # (auto) 0.9 10 ^3/uL (0-1.3); Monocytes % (auto) 8.1 % (0.0-12.0); Neutrophils # (auto) 8.5 10 ^3/uL (1.6-8.6); Neutrophils % (auto) 78.2 % (37.0-80.0); Red Blood Cells 4.11 10^6/uL (4.0-5.20); Red Cell Distribution Width 17.9 % (11.8-14.3); White Blood Cell 10.9 10^3/uL (4.4-10.8)
[2022-01-03] MEDS ORDERED: CITA-73 PO (11:21)
[2022-01-03] MEDS ORDERED: IBUP600T27 PO (11:21)
[2022-01-03 11:55] LABS: Potassium 3.5 mmol/L (3.5-5.1)
[2022-01-03 12:02] LABS: Albumin 2.9 g/dL (3.4-5.0); BUN/Creatinine Ratio 18.4; Bilirubin, Total 0.7 mg/dL (0.2-1.0); Calcium 8.9 mg/dL (8.5-10.1); Total Protein 6.6 g/dL (6.4-8.2)
== END 2022-01-03 10:08 | disposition home or self-care (01) ==
LOC: LAB 09:57 → EDSTATUS 01-05 09:45
PROVIDERS: ATTEND Surgery
DX: Z01.812 Encounter for preprocedural laboratory examination (principal); I21.9 Acute myocardial infarction, unspecified; Z20.822 Contact with and (suspected) exposure to COVID-19; E78.5 Hyperlipidemia, unspecified; I10 Essential (primary) hypertension; R00.2 Palpitations; R00.0 Tachycardia, unspecified; F17.200 Nicotine dependence, unspecified, uncomplicated
CPT/HCPCS: 36415; 80053; 85025; U0003

== ENCOUNTER 2022-02-15 10:04 | Inpatient (IN) | payer OTHER ==
[~2022-02-15] VITALS: Ht 167.6 cm; Wt 91.0 kg
[2022-02-15] VITALS (15 sets, daily range): BP systolic 82–103; BP diastolic 39–64
[~2022-02-15 10:04] MED LIST changes: +CITA-73 PO; -IBUP200C3 PO; +IBUP600T27 PO
[2022-02-15] MEDS ORDERED: cefTRIAXone 1GM/50ML D5W 50 ML IV ONE (10:30)
[2022-02-15] MEDS ORDERED: dilTIAZem 25 MG/5 ML VIAL IV ONE ×2 (11:00→11:45)
[2022-02-15 11:20] LABS: Hematocrit 34.4 % (36.0-46.0); Hemoglobin 10.3 g/dL (12.2-16.2); Mean Corpuscular Hemoglobin 25.1 pg (28.0-32.0); Mean Corpuscular Hgb Conc. 29.9 g/dL (32.0-36.0); Mean Corpuscular Volume 83.8 fL (80.0-100.0); Red Blood Cells 4.11 10^6/uL (4.0-5.20)
[2022-02-15 11:33] LABS: Red Cell Distribution Width 23.1 % (11.8-14.3)
[2022-02-15 11:34] LABS: Band Neutrophils % (manual) 0; Basophils % (manual) 0 (0.0-2.0); Blast Cells 0; INR 1.52 (0.9-1.15); Myelocytes % 0; Partial Thromboplastin Time 33.6 sec (23.6-33.0); Reactive Lymphocytes 0
[2022-02-15 11:38] LABS: Calcium 9.5 mg/dL (8.5-10.1); Potassium 4.9 mmol/L (3.5-5.1)
[2022-02-15 11:41] LABS: Lactic Acid w/Reflex 3.8 mmol/L (0.4-2.0)
[2022-02-15 11:43] LABS: BUN/Creatinine Ratio 36.5; Bilirubin, Total 5.1 mg/dL (0.2-1.0)
[2022-02-15] MEDS ORDERED: SODIUM CHLORIDE 0.9% 1,000 ML IV ONE (11:45)
[2022-02-15] MEDS ORDERED: CLINDAMYCIN 600MG IV 50 ML IV ONE (11:45)
[2022-02-15] MEDS ORDERED: dilTIAZem 125mg/125ml BAG KIT 125 ML IV ONE (11:45)
[2022-02-15] MEDS ORDERED: SODIUM CHLORIDE 0.9% 1,700 ML IV SCH (11:50)
[2022-02-15] MEDS ORDERED: IOHEXOL 350 MG/ML 100ML IJ ONE (12:11)
[2022-02-15 12:39] LABS: Eosinophils % (manual) 1 (0-7); Lymphocytes % (manual) 6 (10.0-50.0); Metamyelocytes % 1; Monocytes % (manual) 16 (0-12); Promyelocytes % 1
[2022-02-15] MEDS ORDERED: MORPHINE SULFATE INJECTION 2 MG/ML SYRG IV PRN ×2 (13:45→15:00)
[2022-02-15] MEDS ORDERED: LABETALOL HCL 5 MG/ML 4ML SYRINGE IV ONE (13:45)
[2022-02-15] MEDS ORDERED: NITROGLYCERIN 0.4 MG SL TAB SL PRN (13:45)
[2022-02-15 13:48] LABS: Urine Bacteria FEW /hpf (None Seen); Urine Blood Negative /uL (Negative); Urine Hyaline Cast FEW /lpf (0 - 2); Urine Mucus FEW (None Seen); Urine Specific Gravity 1.032 (1.001-1.035); Urine WBC 7 /hpf (0 - 5)
[2022-02-15] MEDS ORDERED: HYDROcodone-ACET 5/325MG TAB PO ONE (15:00)
[2022-02-15] MEDS ORDERED: VANCOMYCIN PER PHARMACY 0 MG IV SCH (15:00)
[2022-02-15] MEDS ORDERED: DOCUSATE SOD 100 MG CAP PO PRN (15:00)
[2022-02-15] MEDS ORDERED: PANTOPRAZOLE 40 MG/10 ML VIAL INJ IV ONE (15:00)
[2022-02-15] MEDS ORDERED: ACETAMINOPHEN 325 MG TAB PO PRN (15:00)
[2022-02-15] MEDS ORDERED: PIPERACILLIN-TAZO 4.5GM 100 ML IV ONE (15:00)
[2022-02-15] MEDS ORDERED: dilTIAZem 125mg/125ml BAG KIT 125 ML IV SCH (15:00)
[2022-02-15] MEDS ORDERED: LACTULOSE 20Gm/30ML SOLN PO PRN (15:00)
[2022-02-15] MEDS ORDERED: IPRATROPIUM BROM 0.5 MG/2.5ML INH SOL NEB ONE (15:00)
[2022-02-15] MEDS ORDERED: ONDANSETRON HCL 4 MG/2 ML VIAL IV PRN (15:00)
[2022-02-15] MEDS ORDERED: hydrALAZINE HCL 20 MG/ML VL IV PRN (15:00)
[2022-02-15] MEDS ORDERED: FERROUS SULFATE 325mg EC TAB PO ONE (15:00)
[2022-02-15] MEDS ORDERED: LABETALOL HCL 5 MG/ML 4ML SYRINGE IV PRN (15:00)
[2022-02-15] MEDS ORDERED: MULTIPLE VITAMINS W/ MINERALS TAB PO ONE (15:00)
[2022-02-15] MEDS ORDERED: HYDROcodone-ACET 5/325MG TAB PO PRN (15:00)
[2022-02-15] MEDS ORDERED: SUCRALFATE 1 GM/10 ML ORAL SUSP PO ONE (15:00)
[2022-02-15] MEDS ORDERED: FOLIC ACID 1 MG TAB PO ONE (15:00)
[2022-02-15] MEDS ORDERED: AMIODARONE HCL 200 MG TAB PO ONE (15:15)
[2022-02-15 16:01] LABS: Phosphorus 0.4 mg/dL (2.5-4.90)
[2022-02-15] MEDS: SUCRALFATE 1 GM/10 ML ORAL SUSP PO SCH ×2 (17:44→22:00)
[2022-02-15] MEDS: VANCOMYCIN 1GM/250ML 250 ML IV SCH (17:44)
[2022-02-15] MEDS ORDERED: SODIUM PHOSPHATES 40 MEQ in D5W 5% 250 ML IV ONE (17:45)
[2022-02-15] MEDS: FERROUS SULFATE 325mg EC TAB PO SCH (17:45)
[2022-02-15] MEDS ORDERED: NEUTRA-PHOS TABLET PO ONE (17:45)
[2022-02-15] MEDS: FUROSEMIDE 20 MG/2 ML VIAL IV SCH ×2 (18:00→18:10)
[2022-02-15] MEDS: IPRATROPIUM BROM 0.5 MG/2.5ML INH SOL NEB SCH ×2 (18:30→22:00)
[2022-02-15] MEDS ORDERED: ALBUMIN 25% 100 ML IV ONE (18:45)
[2022-02-15] MEDS: NEUTRA-PHOS TABLET PO SCH (19:02)
[2022-02-15 19:28] LABS: INR 1.49 (0.9-1.15); Partial Thromboplastin Time 31.9 sec (23.6-33.0)
[2022-02-15] MEDS: SODIUM CHLORIDE 0.9% 1,000 ML IV SCH (20:10)
[2022-02-15] MEDS ORDERED: ATORVASTATIN 20 MG TAB PO SCH (22:00)
[2022-02-15] MEDS ORDERED: CARVEDILOL 3.125 MG TAB PO SCH (22:00)
[2022-02-15] MEDS: AMIODARONE HCL 200 MG TAB PO SCH (22:00)
[2022-02-15] MEDS ORDERED: APIXABAN 5 MG TAB PO SCH (22:00)
[2022-02-16] VITALS (93 sets, daily range): BP systolic 72–105; BP diastolic 41–67
[2022-02-16] MEDS: PIPERACILLIN-TAZOB 3.375GM 100 ML IV SCH ×4 (00:05→18:04)
[2022-02-16] MEDS: IPRATROPIUM BROM 0.5 MG/2.5ML INH SOL NEB SCH (02:30)
[2022-02-16] MEDS: VANCOMYCIN 1GM/250ML 250 ML IV SCH (04:38)
[2022-02-16 04:44] LABS: Mean Corpuscular Hemoglobin 25.1 pg (28.0-32.0)
[2022-02-16 04:49] LABS: Hematocrit 27.2 % (36.0-46.0); Hemoglobin 8.3 g/dL (12.2-16.2); Mean Corpuscular Hgb Conc. 30.6 g/dL (32.0-36.0); Mean Corpuscular Volume 82.1 fL (80.0-100.0); Red Blood Cells 3.31 10^6/uL (4.0-5.20)
[2022-02-16 04:53] LABS: Albumin 1.9 g/dL (3.4-5.0); Calcium 8.1 mg/dL (8.5-10.1); Potassium 4.1 mmol/L (3.5-5.1)
[2022-02-16 05:04] LABS: BUN/Creatinine Ratio 39.1; Bilirubin, Total 5.1 mg/dL (0.2-1.0); CRP High Sensitivity 10.9 mg/dL (< 0.3); Phosphorus 2.3 mg/dL (2.5-4.90); Uric Acid 4.8 mg/dL (2.6-6.0)
[2022-02-16 05:07] LABS: Basophils % (manual) 0 (0.0-2.0); Blast Cells 0; Eosinophils % (manual) 0 (0-7); INR 1.55 (0.9-1.15); Metamyelocytes % 0; Myelocytes % 0; Partial Thromboplastin Time 42.5 sec (23.6-33.0); Promyelocytes % 0; Reactive Lymphocytes 0; Red Cell Distribution Width 22.9 % (11.8-14.3); White Blood Cell 30.7 10^3/uL (4.4-10.8)
[2022-02-16] MEDS: FUROSEMIDE 20 MG/2 ML VIAL IV SCH (06:00)
[2022-02-16] MEDS: SUCRALFATE 1 GM/10 ML ORAL SUSP PO SCH ×4 (07:00→23:27)
[2022-02-16] MEDS: SODIUM CHLORIDE 0.9% 1,000 ML IV SCH (07:40)
[2022-02-16] MEDS ORDERED: NOREPINEPHRINE 8 MG/250ML KIT 250 ML IV ONE (08:15)
[2022-02-16] MEDS ORDERED: NOREPINEPHRINE 8 MG/250ML KIT 250 ML IV SCH (08:15)
[2022-02-16] MEDS: NEUTRA-PHOS TABLET PO SCH ×3 (09:39→18:04)
[2022-02-16] MEDS: FERROUS SULFATE 325mg EC TAB PO SCH (09:39)
[2022-02-16] MEDS: THIAMINE HCL 100 MG TAB PO SCH (10:00)
[2022-02-16] MEDS ORDERED: MULTIPLE VITAMINS W/ MINERALS TAB PO SCH (10:00)
[2022-02-16] MEDS ORDERED: ENOXAPARIN SOD 40 MG/0.4 ML SYRINGE SC SCH (10:00)
[2022-02-16] MEDS ORDERED: ASPirin 81 mg TAB PO SCH (10:00)
[2022-02-16] MEDS ORDERED: BENAZEPRIL HCL 10 MG TAB PO SCH (10:00)
[2022-02-16] MEDS: FOLIC ACID 1 MG TAB PO SCH (10:00)
[2022-02-16] MEDS ORDERED: CYANOCOBALAMIN 500 MCG TAB PO SCH (10:00)
[2022-02-16] MEDS ORDERED: CHOLECALCIFEROL (VITD3) 2,000 UNIT CAP/TAB PO SCH (10:00)
[2022-02-16] MEDS ORDERED: NYSTATIN TOPICAL POWDER 15GM TOP ONE (10:15)
[2022-02-16] MEDS ORDERED: chlordiazePOXIDE HCL 5 MG CAP PO PRN (10:30)
[2022-02-16 10:43] LABS: Band Neutrophils % (manual) 3; Lymphocytes % (manual) 7 (10.0-50.0); Monocytes % (manual) 5 (0-12)
[2022-02-16] MEDS: PANTOPRAZOLE 40 MG/10 ML VIAL INJ IV SCH (10:50)
[2022-02-16] MEDS: AMIODARONE HCL 200 MG TAB PO SCH ×2 (10:51→23:28)
[2022-02-16] MEDS: CITALOPRAM HYDROBR 20 MG TAB PO SCH (10:51)
[2022-02-16] MEDS: HYDROcodone-ACET 5/325MG TAB PO PRN (11:36)
[2022-02-16 12:09] LABS: Alcohol, Urine < 3.0 mg/dL (0-10); Amphetamine Screen, Urine NEGATIVE (NEGATIVE); Barbiturate Scree,Urine NEGATIVE (NEGATIVE); Benzodiazephine Screen, Urine NEGATIVE (NEGATIVE); Cannabinoid Screen, Urine POSITIVE (NEGATIVE); Cocaine Screen, Urine NEGATIVE (NEGATIVE); Phencyclidine Screen, Urine NEGATIVE (NEGATIVE)
[2022-02-16 12:17] LABS: Opiate Scree,Urine NEGATIVE (NEGATIVE)
[2022-02-16] MEDS: PHENYLEPHRINE IV 250 ML IV SCH ×3 (14:00→23:29)
[2022-02-16] MEDS: HYDROcodone-ACET 10/325MG TAB PO PRN (15:24)
[2022-02-16] MEDS: ALBUMIN 25% 100 ML IV SCH ×2 (15:30→23:57)
[2022-02-16] MEDS: NOREPINEPHRINE 8 MG/250ML KIT 250 ML IV SCH (19:15)
[2022-02-16] MEDS: LINEZOLID 600MG/300ML 300 ML IV SCH (21:33)
[2022-02-16] MEDS: NYSTATIN TOPICAL POWDER 15GM TOP SCH (23:28)
[2022-02-17] VITALS (75 sets, daily range): BP systolic 80–130; BP diastolic 38–72
[2022-02-17] MEDS: PIPERACILLIN-TAZOB 3.375GM 100 ML IV SCH ×4 (01:53→18:11)
[2022-02-17] MEDS: PHENYLEPHRINE IV 250 ML IV SCH ×4 (01:54→08:41)
[2022-02-17] MEDS: LORazepam 0.5 MG TAB PO PRN ×2 (02:10→16:43)
[2022-02-17] MEDS: SODIUM CHLORIDE 0.9% 1,000 ML IV SCH ×2 (03:32→17:00)
[2022-02-17 04:56] LABS: Albumin 2.7 g/dL (3.4-5.0); Calcium 8.1 mg/dL (8.5-10.1); Potassium 3.7 mmol/L (3.5-5.1)
[2022-02-17 05:01] LABS: BUN/Creatinine Ratio 26.2; Bilirubin, Total 5.9 mg/dL (0.2-1.0); Total Protein 5.8 g/dL (6.4-8.2)
[2022-02-17] MEDS: SUCRALFATE 1 GM/10 ML ORAL SUSP PO SCH (07:00)
[2022-02-17] MEDS: ALBUMIN 25% 100 ML IV SCH (07:50)
[2022-02-17] MEDS: LINEZOLID 600MG/300ML 300 ML IV SCH ×2 (09:35→22:16)
[2022-02-17] MEDS: PANTOPRAZOLE 40 MG/10 ML VIAL INJ IV SCH (09:37)
[2022-02-17 09:43] LABS: Hematocrit 29.4 % (36.0-46.0); Hemoglobin 8.9 g/dL (12.2-16.2); Mean Corpuscular Hemoglobin 25.7 pg (28.0-32.0); Mean Corpuscular Hgb Conc. 30.2 g/dL (32.0-36.0); Mean Corpuscular Volume 84.9 fL (80.0-100.0); Red Blood Cells 3.47 10^6/uL (4.0-5.20)
[2022-02-17] MEDS: PHENYLEPHRINE INJ 40 MG in SODIUM CHL 0.9% 246 ML IV SCH (09:45)
[2022-02-17 09:46] LABS: Red Cell Distribution Width 22.8 % (11.8-14.3)
[2022-02-17 09:47] LABS: Band Neutrophils % (manual) 0; Basophils % (manual) 0 (0.0-2.0); Blast Cells 0; Eosinophils % (manual) 0 (0-7); Metamyelocytes % 0; Myelocytes % 0; Promyelocytes % 0; Reactive Lymphocytes 0
[2022-02-17] MEDS ORDERED: CAL025T GT (09:49)
[2022-02-17] MEDS ORDERED: CHOL20007 OR (09:52)
[2022-02-17] MEDS ORDERED: IBUP600T27 PO (09:52)
[2022-02-17] MEDS ORDERED: CETI10TA2 PO (09:53)
[2022-02-17] MEDS ORDERED: APIX5TAB PO (09:53)
[2022-02-17] MEDS: NYSTATIN TOPICAL POWDER 15GM TOP SCH ×2 (10:00→22:17)
[2022-02-17] MEDS: THIAMINE HCL 100 MG TAB PO SCH (10:00)
[2022-02-17] MEDS ORDERED: PHENYLEPHRINE IV 250 ML IV ONE (10:28)
[2022-02-17] MEDS: FOLIC ACID 1 MG TAB PO SCH (10:38)
[2022-02-17] MEDS: AMIODARONE HCL 200 MG TAB PO SCH ×2 (10:38→22:17)
[2022-02-17] MEDS: CITALOPRAM HYDROBR 20 MG TAB PO SCH (10:38)
[2022-02-17 12:14] LABS: Lymphocytes % (manual) 8 (10.0-50.0); Monocytes % (manual) 5 (0-12)
[2022-02-17] MEDS: HYDROcodone-ACET 10/325MG TAB PO PRN (16:44)
[2022-02-17] MEDS: NOREPINEPHRINE 8 MG/250ML KIT 250 ML IV SCH (18:11)
[2022-02-17] MEDS: LACTULOSE 20Gm/30ML SOLN PO SCH (18:11)
[2022-02-18] VITALS (26 sets, daily range): BP systolic 95–110; BP diastolic 43–77
[2022-02-18] MEDS: PIPERACILLIN-TAZOB 3.375GM 100 ML IV SCH ×4 (00:24→18:00)
[2022-02-18] MEDS: LACTULOSE 20Gm/30ML SOLN PO SCH ×5 (00:24→18:00)
[2022-02-18] MEDS: PHENYLEPHRINE INJ 40 MG in SODIUM CHL 0.9% 246 ML IV SCH (02:25)
[2022-02-18 04:33] LABS: Hematocrit 28.7 % (36.0-46.0); Hemoglobin 8.6 g/dL (12.2-16.2); Mean Corpuscular Hemoglobin 25.2 pg (28.0-32.0); Mean Corpuscular Hgb Conc. 29.9 g/dL (32.0-36.0); Mean Corpuscular Volume 84.1 fL (80.0-100.0); Red Blood Cells 3.41 10^6/uL (4.0-5.20)
[2022-02-18 04:50] LABS: Albumin 2.6 g/dL (3.4-5.0); Calcium 7.9 mg/dL (8.5-10.1); Potassium 3.8 mmol/L (3.5-5.1)
[2022-02-18 04:53] LABS: BUN/Creatinine Ratio 27.1; Bilirubin, Total 5.1 mg/dL (0.2-1.0); Total Protein 5.7 g/dL (6.4-8.2)
[2022-02-18 05:17] LABS: Red Cell Distribution Width 23.4 % (11.8-14.3); White Blood Cell 32.8 10^3/uL (4.4-10.8)
[2022-02-18 05:18] LABS: Basophils % (manual) 0 (0.0-2.0); Blast Cells 0; Eosinophils % (manual) 0 (0-7); Metamyelocytes % 0; Promyelocytes % 0; Reactive Lymphocytes 0
[2022-02-18 05:29] LABS: Band Neutrophils % (manual) 17; Monocytes % (manual) 7 (0-12); Myelocytes % 1
[2022-02-18 05:30] LABS: Lymphocytes % (manual) 4 (10.0-50.0)
[2022-02-18] MEDS: CITALOPRAM HYDROBR 20 MG TAB PO SCH (09:54)
[2022-02-18] MEDS: LINEZOLID 600MG/300ML 300 ML IV SCH (09:54)
[2022-02-18] MEDS: PANTOPRAZOLE 40 MG/10 ML VIAL INJ IV SCH (09:54)
[2022-02-18] MEDS: NYSTATIN TOPICAL POWDER 15GM TOP SCH (09:55)
[2022-02-18] MEDS: AMIODARONE HCL 200 MG TAB PO SCH (09:55)
[2022-02-18] MEDS: HYDROcodone-ACET 5/325MG TAB PO PRN (14:10)
== END 2022-02-18 20:00 | disposition hospice, home (50) | DRG 871 ==
LOC: EDUNIT# 10:04 → EDBD 10:04 → ER 10:04 → OVERFLOW 13:37 → ICU WEST 16:12
PROVIDERS: ADMIT Hospitalist; ATTEND Internal Medicine
PROC: 05HB33Z Insertion of Infusion Device into Right Basilic Vein, Percutaneous Approach (ICD-10-PCS; principal; 2022-02-15)
PROC: B54MZZA Ultrasonography of Right Upper Extremity Veins, Guidance (ICD-10-PCS; 2022-02-15)
DX: A41.9 Sepsis, unspecified organism (principal); G93.41 Metabolic encephalopathy; J18.9 Pneumonia, unspecified organism; I50.33 Acute on chronic diastolic (congestive) heart failure; J96.00 Acute respiratory failure, unspecified whether with hypoxia or hypercapnia; R65.21 Severe sepsis with septic shock; L03.116 Cellulitis of left lower limb; N39.0 Urinary tract infection, site not specified; C78.00 Secondary malignant neoplasm of unspecified lung; E44.0 Moderate protein-calorie malnutrition; E87.1 Hypo-osmolality and hyponatremia; I16.9 Hypertensive crisis, unspecified; J44.0 Chronic obstructive pulmonary disease with (acute) lower respiratory infection; D68.9 Coagulation defect, unspecified; I31.3 Pericardial effusion (noninflammatory); I42.9 Cardiomyopathy, unspecified; Z66 Do not resuscitate; I48.0 Paroxysmal atrial fibrillation; D64.9 Anemia, unspecified; E66.01 Morbid (severe) obesity due to excess calories; E78.5 Hyperlipidemia, unspecified; Z68.32 Body mass index [BMI] 32.0-32.9, adult; Z20.822 Contact with and (suspected) exposure to COVID-19; D72.823 Leukemoid reaction; E88.09 Other disorders of plasma-protein metabolism, not elsewhere classified; F10.20 Alcohol dependence, uncomplicated; I71.2 Thoracic aortic aneurysm, without rupture; K70.30 Alcoholic cirrhosis of liver without ascites; K72.90 Hepatic failure, unspecified without coma; L89.90 Pressure ulcer of unspecified site, unspecified stage; C43.9 Malignant melanoma of skin, unspecified; Z83.3 Family history of diabetes mellitus
CPT/HCPCS: 36415; 70450; 71045; 71275; 76604; 76700; 80053; 80061; 80307; 81001; 82140; 82550; 82728; 83036; 83605; 83615; 83690; 83735; 83880; 84100; 84443; 84478; 84484; 84550; 85007; 85027; 85362; 85379; 85384; 85610; 85652; 85730; 86141; 86703; 87040; 87081; 87086; 87205; 93005; 93306; 93886; 93925; 93970; 96361; 96365; 96367; 96368; 96376; 99291; C9113; G0378; J0696; J2543; J3490; J7060; P9047